=== PATIENT | female | born 1995 | race Caucasian/White ===

== ENCOUNTER 2017-11-22 08:09 | Emergency (ER) | payer OTHER ==
[2017-11-22] MEDS: BENOXINATE HCL/FLUORESCEIN SOD 5 ML OPHTH RIGHT EYE (08:25)
[2017-11-22] MEDS: FLUORESCEIN STRIP RIGHT EYE (09:35)
[2017-11-22] MEDS: TETRACAINE 0.5% 4 ML OPH RIGHT EYE (09:35)
== END 2017-11-22 09:50 | disposition home or self-care (01) ==
LOC: FTE 08:09
DX: S05.91XA Unspecified injury of right eye and orbit, initial encounter (principal); J45.909 Unspecified asthma, uncomplicated; W50.4XXA Accidental scratch by another person, initial encounter; Y92.9 Unspecified place or not applicable
CPT/HCPCS: 99283; Z7502